=== PATIENT | male | born 1965 | race Caucasian/White ===

== ENCOUNTER 2019-04-05 11:26 | Emergency (ER) | payer OTHER ==
[~2019-04-05] VITALS: Ht 160 cm; Wt 101.9 kg
[2019-04-05 11:48] VITALS: BP 138/64; PULSE 85; RESP 18; Ht 160 cm; Wt 101.9 kg
[2019-04-05] MEDS ORDERED: ONDANSETRON (ODT) 4 MG TAB ODT STA (12:38)
[2019-04-05] MEDS ORDERED: HYDROCODONE/APAP (5/325) TAB PO ONE (13:00)
[2019-04-05] MEDS ORDERED: ACET500C5 PO (13:54)
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
== END 2019-04-05 14:07 | disposition home or self-care (01) ==
LOC: FTE 11:26
DX: S00.03XA Contusion of scalp, initial encounter (principal); E11.9 Type 2 diabetes mellitus without complications; I10 Essential (primary) hypertension; V49.49XA Driver injured in collision with other motor vehicles in traffic accident, initial encounter; Z79.4 Long term (current) use of insulin
CPT/HCPCS: 70450; 72125; Z7610